=== PATIENT | female | born 1990 | race Caucasian/White ===

== ENCOUNTER 2019-09-19 22:09 | Emergency (ER) | payer MEDICAID ==
[2019-09-19] MEDS ORDERED: ONDANSETRON 4 MG TAB.RAPDIS PO ONE (22:34)
[2019-09-19] MEDS ORDERED: LORAZEPAM 0.5 MG TABLET PO ONE (23:51)
--- NOTE | 2019-09-19 23:51 | ER Document Report ---
ED General - General Chief Complaint: Anxiety Stated Complaint: CHEST PAIN/ANXIETY Time Seen by Provider: 09/19/19 23:42 Mode of Arrival: Ambulatory Information source: Patient TRAVEL OUTSIDE OF THE [place] IN LAST 30 DAYS: No - HPI Onset: Other - over the last 3 days Onset/Duration: Gradual Quality of pain: Pressure Severity: Moderate Pain Level: 3 Associated symptoms: Nausea, Vomiting Exacerbated by: Other - Anxiety Relieved by: Denies Similar symptoms previously: Yes - with Anxiety and Panic Attacks Recently seen / treated by doctor: No Notes: 29 year old female with a history of Anxiety, Depression, PTSD, Bipolar here in the ER for chest pain and anxiety for the last several days. The patient says she recently moved to the area from [place] and she does not have a primary care doctor or a mental health provider. The patient says she has been off all of her medications for several months now. The patient says she had been on Gabapentin, Seroquel, Klonopin, and Remeron. The patient says the chest pains she is having are common for her when she is anxious. The patient says she also gets nausea and vomiting with her anxiety and she states she has been unable to keep anything down for 3 days. The patient is also concerned she may be having seizures. The patient tells me she takes Gabapentin for her seizures and that she has never been prescribed a true anti-epileptic medication. - Related Data Allergies/Adverse Reactions: cefaclor [From Ceclor] Allergy (Verified 09/19/19 22:11) Penicillins Allergy (Verified 09/19/19 22:11) Past Medical History - General Information source: Patient - Social History Smoking Status: Current Every Day Smoker Frequency of alcohol use: None Drug Abuse: None Family History: Reviewed & Not Pertinent Patient has suicidal ideation: No Patient has homicidal ideation: No Psychiatric Medical History: Reports: Hx Anxiety, Hx Bipolar Disorder, Hx Depression, Hx Post Traumatic Stress Disorder Review of Systems - Review of Systems Constitutional: No symptoms reported EENT: No symptoms reported Cardiovascular: Chest pain Respiratory: No symptoms reported Gastrointestinal: Nausea, Vomiting Genitourinary: No symptoms reported Female Genitourinary: No symptoms reported Musculoskeletal: No symptoms reported Skin: No symptoms reported Hematologic/Lymphatic: No symptoms reported Neurological/Psychological: Anxiety -: Yes All other systems reviewed and negative Physical Exam - Vital signs Vitals: Temp Pulse BP Pulse Ox 98.0 F 99 154/104 H 100 09/19/19 22:13 09/19/19 22:13 09/19/19 22:13 09/19/19 22:13 - Notes Notes: GENERAL: Well-appearing, well-nourished and in no acute distress. HEAD: Atraumatic, normocephalic. EYES: Pupils equal round and reactive to light, extraocular movements intact, sclera anicteric, conjunctiva are normal. ENT: External ears normal, nares patent, oropharynx clear without exudates. Moist mucous membranes. NECK: Normal range of motion, supple without lymphadenopathy or JVD. LUNGS: Breath sounds clear to auscultation bilaterally and equal. No wheezes rales or rhonchi. HEART: Regular rate and rhythm without murmurs, rubs or gallops. ABDOMEN: Soft, nontender, normoactive bowel sounds. No guarding, no rebound. No masses appreciated. EXTREMITIES: Normal range of motion, no pitting or edema. No clubbing or cyanosis. NEUROLOGICAL: Cranial nerves II through XII grossly intact. Normal speech, normal gait. PSYCH: Anxious, Normal mood, normal affect. SKIN: Warm, Dry, normal turgor, no rashes or lesions noted. Course - Re-evaluation Re-evalutation: 09/20/19 00:12 The patient is here - Vital Signs Vital signs: Temp Pulse Resp BP Pulse Ox 98.2 F 95 22 H 134/86 H 99 09/19/19 23:09 09/19/19 23:09 09/19/19 23:09 09/19/19 23:09 09/19/19 23:09 - EKG Interpretation by Pa EKG shows normal: Sinus rhythm, [place], Intervals, QRS Complexes, ST-T Waves Rate: Normal Rhythm: NSR Discharge - Discharge Clinical Impression: Anxiety Nausea & vomiting Qualifiers: Vomiting type: unspecified Vomiting Intractability: non-intractable Qualified Code(s): R11.2 - Nausea with vomiting, unspecified Chest pain Qualifiers: Chest pain type: other chest pain Qualified Code(s): R07.89 - Other chest pain; R07.8 - Other chest pain Condition: Stable Disposition: HOME, SELF-CARE Instructions: Anxiety ([facility]), Nausea or Vomiting, Nonspecific ([facility]), Chest Pain of Unclear Cause ([facility]) Additional Instructions: Take Zofran as needed for nausea. Eat a bland diet until your nausea and vomiting improves. Follow up with outpatient Mental Health and with a local primary care doctor. Prescriptions: Ondansetron [Zofran Odt 4 mg Tablet] 4 mg PO Q8HP PRN #15 tab.rapdis PRN Reason: Referrals: LUIS KIRBY MD [COMMUNITY BASED STAFF] - Follow up as needed LARISSA MCKEON MD [ACTIVE STAFF] - Follow up as needed
[2019-09-20] MEDS ORDERED: ACETAMINOPHEN 325 MG TABLET PO ONE (00:57)
[2019-09-20 01:29] VITALS: BP 130/79
[2019-09-20] MEDS ORDERED: ONDANSETRON 4 MG TAB.RAPDIS PO ONE (01:33)
--- NOTE | 2019-09-20 15:28 | EKG REPORT ---
SEVERITY:- ABNORMAL ECG - SINUS RHYTHM RIGHT ATRIAL ABNORMALITY BORDERLINE PROLONGED QT INTERVAL : Confirmed by: Carole Anna MD 20-Sep-2019 15:26:59
== END 2019-09-20 01:58 | disposition home or self-care (01) ==
LOC: ER 22:09
DX: F41.9 Anxiety disorder, unspecified (principal); R11.2 Nausea with vomiting, unspecified; R07.89 Other chest pain; R56.9 Unspecified convulsions; F17.200 Nicotine dependence, unspecified, uncomplicated; Z79.899 Other long term (current) drug therapy; Z88.1 Allergy status to other antibiotic agents; Z88.0 Allergy status to penicillin
CPT/HCPCS: 93005; 99283; 93010; J3490; S0119 ×2

== ENCOUNTER 2019-09-20 02:49 | Emergency (ER) | payer MEDICAID ==
[2019-09-20 02:56] VITALS: BP 164/106
[2019-09-20] MEDS ORDERED: PROMETHAZINE HCL INJ 25 MG/1 ML VIAL IM ONE (02:59)
--- NOTE | 2019-09-20 03:01 | ER Document Report ---
ED General - General Chief Complaint: Abdominal Pain Stated Complaint: ABDOMINAL PAIN AND NAUSEA Time Seen by Provider: 09/20/19 02:54 Mode of Arrival: Ambulatory Information source: Patient TRAVEL OUTSIDE OF THE [place]. IN LAST 30 DAYS: No - HPI Onset: Other - over the last several days Onset/Duration: Gradual Quality of pain: Achy Severity: Moderate Pain Level: 3 Associated symptoms: Nausea, Vomiting Exacerbated by: Food Relieved by: Denies Similar symptoms previously: Yes - many times before Recently seen / treated by doctor: Yes - patient was seen in the ER on 09/18/18 by me for similar issues Notes: 29 year old female with a history of Anxiety, Depression, PTSD, Bipolar who was just seen in the ER earlier for chest pain, nausea, vomiting, anxiety checking back into the ER for continued nausea and vomiting. As it turns out the patient was discharged and was in the waiting room when nursing staff noticed the patient making herself vomit. The patient had been given Zofran on her previous ER visit. - Related Data Allergies/Adverse Reactions: [facility] [[facility] Allergy (Verified 09/19/19 22:11) Penicillins Allergy (Verified 09/19/19 22:11) Past Medical History - General Information source: Patient - Social History Smoking Status: Current Every Day Smoker Frequency of alcohol use: None Drug Abuse: None Lives with: Friend Family History: Reviewed & Not Pertinent Patient has suicidal ideation: No Patient has homicidal ideation: No Psychiatric Medical History: Reports: Hx Anxiety, Hx Bipolar Disorder, Hx Depression, Hx Post Traumatic Stress Disorder Review of Systems - Review of Systems Constitutional: No symptoms reported EENT: No symptoms reported Cardiovascular: No symptoms reported Respiratory: No symptoms reported Gastrointestinal: Nausea, Vomiting Genitourinary: No symptoms reported Female Genitourinary: No symptoms reported Musculoskeletal: No symptoms reported Skin: No symptoms reported Hematologic/Lymphatic: No symptoms reported Neurological/Psychological: Anxiety -: Yes All other systems reviewed and negative Physical Exam - Vital signs Vitals: Temp 98.7 F 09/20/19 02:50 - Notes Notes: GENERAL: Poorly groomed, well-nourished and in no acute distress. HEAD: Atraumatic, normocephalic. EYES: Pupils equal round and reactive to light, extraocular movements intact, sclera anicteric, conjunctiva are normal. ENT: Normal external ears, nares patent, oropharynx clear without exudates. Moist mucous membranes. NECK: Normal range of motion, supple without lymphadenopathy or JVD. LUNGS: Breath sounds clear to auscultation bilaterally and equal. No wheezes rales or rhonchi. HEART: Regular rate and rhythm without murmurs, rubs or gallops. ABDOMEN: Soft, nontender, normoactive bowel sounds. No guarding, no rebound. No masses appreciated. EXTREMITIES: Normal range of motion, no pitting or edema. No clubbing or cyanosis. NEUROLOGICAL: No focal deficits. Normal speech, normal gait. PSYCH: Normal mood, normal affect. SKIN: Warm, Dry, normal turgor, no rashes or lesions noted. Course - Re-evaluation Re-evalutation: 09/20/19 03:11 The patient checked back into the ER for continued nausea/vomiting and abdominal pains. Nursing staff witnessed the patient making herself vomit in the waiting room. The patient apparently also was shaking on her own and telling staff she was having a seizure while completely conscious. The patient was in the same state of health she was in when I saw her earlier in the shift but this time she was very impolite and rude, swearing and yelling at staff. The patient was told she could have an IM shot of Phenergan and then she could leave the hospital on her own or be escorted off the hospital grounds by police. No lab work or imaging needed since patient has chronic anxiety and she often has nausea and vomiting with her anxiety. Patient told she needs to follow up with a primary care doctor and outpatient mental health. - Vital Signs Vital signs: Temp Pulse Resp BP Pulse Ox 98.7 F 96 20 164/106 H 09/20/19 02:55 09/20/19 02:55 09/20/19 02:55 09/20/19 02:55 Discharge - Discharge Clinical Impression: Anxiety Nausea & vomiting Qualifiers: Vomiting type: unspecified Vomiting Intractability: non-intractable Qualified Code(s): R11.2 - Nausea with vomiting, unspecified Condition: Stable Disposition: HOME, SELF-CARE Instructions: Nausea or Vomiting, Nonspecific ([facility]) Additional Instructions: Use your previously prescribed Zofran as needed for nausea/vomiting. Eat a bland diet. Follow up with a local primary care doctor and local mental health provider.
[2019-09-20] MEDS ORDERED: MAG HYDROX/AL HYDROX/SIMETH SUSP 30 ML UDCUP PO ONE (03:11)
[2019-09-20] MEDS ORDERED: ONDANSETRON ODT 4 MG TAB (6 TAB/ER DISP) PO PRN (05:07)
== END 2019-09-20 05:00 | disposition home or self-care (01) ==
LOC: ER 02:49
DX: F41.9 Anxiety disorder, unspecified (principal); R11.2 Nausea with vomiting, unspecified; R10.9 Unspecified abdominal pain; R07.9 Chest pain, unspecified; F32.9 Major depressive disorder, single episode, unspecified; Z88.0 Allergy status to penicillin; Z88.1 Allergy status to other antibiotic agents; F17.200 Nicotine dependence, unspecified, uncomplicated
CPT/HCPCS: 99283; J3490; J2550

== ENCOUNTER 2019-09-24 21:33 | Emergency (ER) | payer OTHER ==
--- NOTE | 2019-09-24 23:26 | ER Document Report ---
ED Psych Disorder / Suicide - General Chief Complaint: Psych Problem Stated Complaint: PSYCH/DETOX Time Seen by Provider: 09/24/19 23:00 Notes: Patient is a 29-year-old female that comes to the emergency department for chief complaint of vomiting 6 times today. She denies chest pain, abdominal pain, fever, . She states that she was "on a crack cocaine binge" because she has been depressed because she ran out of her regular medications. She states she has been out of her medications including klonopin, seroquel, gabapentin, suboxone, remeron. She states she has a history of bipolar disorder, anxiety/depression, PTSD, and cyclic vomiting syndrome. She denies recreational drugs other than crack cocaine, denies recent marijuana, denies ever injecting IV drugs. She states she was given a one-month supply on her last visit with her psychiatrist and now ran out, she states she is living with a friend, she denies being homeless. She denies SI or HI, she states that she thought she was hearing voices earlier this morning, but when asked what they were saying she states "they just occasionally say my name and nothing else". She states she is not concerned for her safety, she states she is just hoping to get back on her medications. She states she was seen here recently and prescribed Zofran but it was not helping this morning. TRAVEL OUTSIDE OF THE [place] IN LAST 30 DAYS: No - Related Data Allergies/Adverse Reactions: cefaclor [From [facility]] Allergy (Verified 09/19/19 22:11) Penicillins Allergy (Verified 09/19/19 22:11) Home Medications: NO MEDS FOR 2 WEEKS Past Medical History - General Information source: Patient - Social History Smoking Status: Current Every Day Smoker Drug Abuse: Cocaine, Marijuana Lives with: Friend Family History: Reviewed & Not Pertinent Patient has homicidal ideation: No Psychiatric Medical History: Reports: Hx Anxiety, Hx Bipolar Disorder, Hx Depression, Hx Post Traumatic Stress Disorder - Immunizations Hx Diphtheria, Pertussis, Tetanus Vaccination: Yes Review of Systems - Review of Systems Constitutional: No symptoms reported EENT: No symptoms reported Cardiovascular: No symptoms reported Respiratory: No symptoms reported Gastrointestinal: See HPI Genitourinary: No symptoms reported Female Genitourinary: No symptoms reported Musculoskeletal: No symptoms reported Skin: No symptoms reported Hematologic/Lymphatic: No symptoms reported Neurological/Psychological: See HPI Physical Exam - Vital signs Vitals: Temp Pulse Resp BP Pulse Ox 98.7 F 115 H 13 137/84 H 97 09/24/19 21:43 09/24/19 21:43 09/24/19 21:43 09/24/19 21:43 09/24/19 21:43 - Notes Notes: GENERAL: Alert, interacts well. No acute distress. HEAD: Normocephalic, atraumatic. EYES: Pupils equal, round, and reactive to light. Extraocular movements intact. ENT: Oral mucosa dry, tongue midline. Oropharynx unremarkable. Airway patent. NECK: Full range of motion. Supple. Trachea midline. No lymphadenopathy. LUNGS: Clear to auscultation bilaterally, no wheezes, rales, or rhonchi. No respiratory distress. Non-tender chest wall. HEART: Regular rate and rhythm. No murmur ABDOMEN: Soft, non-tender. Non-distended. Bowel sounds present in all 4 quadrants. EXTREMITIES: Moves all 4 extremities spontaneously. No edema, normal radial and dorsalis pedis pulses bilaterally. No cyanosis. BACK: no cervical, thoracic, lumbar midline tenderness. No saddle anesthesia, normal distal neurovascular exam. Moves all extremities in full range of motion. NEUROLOGICAL: Alert and oriented x3. Normal speech. Cranial nerves II through XII grossly intact. Strength 5/5 in all extremities. PSYCH: Speaks in even tones, makes good eye contact, does not appear to be responding to internal stimuli, appears calm, congruent mood and affect SKIN: Warm, dry, normal turgor. No rashes or lesions noted. Course - Re-evaluation Re-evalutation: Patient sleeping and easily aroused, well-appearing on my initial evaluation. She is not tachycardic. She does have dry mucous membranes, she does report that she had vomiting today. She was given IV fluids, nausea medication, work- up pending. CBC unremarkable, chemistry does show hypokalemia at 2.8, otherwise unremarkable. Urinalysis does have a few squamous epithelials, large amount of leukocyte esterase and some white blood cells. Patient was started on Macrobid, she does not have CVA tenderness, leukocytosis, fever. Urine drug screen does show cocaine and marijuana. Alcohol negative. EKG with borderline QTC but otherwise unremarkable. Patient states that she is not suicidal, not homicidal, and she is denying any current hallucinations. Patient is well-appearing, has not taken benzodiazepines for over 2 weeks, has recently taken Suboxone but does not appear to have any severe symptoms here, she has not had any vomiting here, she is not tachycardic after IV fluids (she was borderline later after I discussed her situation and she became somewhat upset), she is not tremulous or diaphoretic. Patient is stating that she wants inpatient detox and rehab. I discussed patient with our mental health team. Unfortunately we do not have any available beds at [facility] at this time, he does not meet IVC criteria, patient can be given resources for homelessness, however patient denies being homeless. Discussed Dr. Medrano. Patient can be treated for nausea, UTI, and discharged. Patient was being given potassium supplementation, however in the middle of this patient states she was to take by mouth and is ready to leave. She can orally supplement at home as well. Discussed return precautions and provided follow-up referral. Stable and well-appearing at time of discharge. - Vital Signs Vital signs: Temp Pulse Resp BP Pulse Ox 98.2 F 98 15 146/99 H 97 09/24/19 23:35 09/24/19 23:35 09/25/19 04:01 09/25/19 04:01 09/25/19 04:01 - Laboratory Result Diagrams: 09/25/19 01:50 09/25/19 01:50 Laboratory results interpreted by me: 09/24/19 09/25/19 09/25/19 23:40 01:50 01:50 RDW 14.5 H Sodium 135.4 L Potassium 2.8 L* Chloride 92 L Carbon Dioxide 33 H Creatine Kinase 29 L Urine Blood LARGE H Urine Urobilinogen 2.0 H Ur Leukocyte Esterase LARGE H Salicylates < 1.0 L Acetaminophen < 10 L Discharge - Discharge Clinical Impression: Has run out of medications, Anxiety Vomiting Qualifiers: Vomiting type: unspecified Vomiting Intractability: non-intractable Nausea presence: unspecified Qualified Code(s): R11.10 - Vomiting, unspecified Opiate dependence Qualifiers: Substance use status: with unspecified opioid-induced disorder Qualified Code(s): F11.29 - Opioid dependence with unspecified opioid-induced disorder Condition: Stable Disposition: HOME, SELF-CARE Additional Instructions: You have been treated for dehydration, low potassium, and have been started on medications for a urinary tract infection. Take Phenergan if needed, start with bland diet. Follow-up with the rehab center listed below. Return for any concerning symptoms including developing fever, uncontrolled vomiting, or any other concerning or worsening symptoms. [facility] [address] [place] [id number] Hours: Open 24 hours Prescriptions: Nitrofurantoin Macrocrystal [Macrodantin] 50 mg PO QID 5 Days #20 capsule Promethazine HCl [Phenergan 25 mg Tablet] 25 mg PO Q6H PRN #20 tablet PRN Reason:
[2019-09-24] MEDS ORDERED: PROMETHAZINE HCL 25 MG TABLET PO ONE (23:48)
[2019-09-24] MEDS ORDERED: FAMOTIDINE 20 MG TABLET PO ONE (23:48)
[2019-09-24] MEDS ORDERED: NORMAL SALINE 1000 ML 1,000 ML IV ONE (23:50)
[2019-09-25 00:08] LABS: APPEARANCE,URINE CLOUDY; BILIRUBIN,URINE NEGATIVE (NEGATIVE); COLOR,URINE YELLOW; GLUCOSE, URINE NEGATIVE (NEGATIVE); KETONES,URINE NEGATIVE (NEGATIVE); LEUKOCYTE ESTERASE,URINE LARGE (NEGATIVE); NITRITE,URINE NEGATIVE (NEGATIVE); PROTEIN,URINE NEGATIVE (NEGATIVE); URINE SPECIFIC GRAVITY 1.009
[2019-09-25 00:23] LABS: URINE AMPHETAMINES SCREEN NEGATIVE; URINE BARBITURATES SCREEN NEGATIVE; URINE BENZODIAZEPINES SCREEN NEGATIVE; URINE METHADONE SCREEN NEGATIVE; URINE PHENCYCLIDINE SCREEN NEGATIVE
[2019-09-25 00:25] LABS: URINE COCAINE SCREEN UNCONFIRMED POSITIVE; URINE MARIJUANA (THC) SCREEN UNCONFIRMED POSITIVE
[2019-09-25] MEDS ORDERED: DIPHENHYDRAMINE HCL 50 MG/ML VIAL IV ONE (01:24)
[2019-09-25 02:11] LABS: ABSOLUTE BASOPHILS # (AUTO) 0.1 10^3/uL (0.0-0.2); ABSOLUTE EOSINOPHILS # (AUTO) 0.1 10^3/uL (0.0-0.6); ABSOLUTE LYMPHOCYTES (AUTO) 3.5 10^3/uL (0.5-4.7); ABSOLUTE MONOCYTES (AUTO) 0.7 10^3/uL (0.1-1.4); ABSOLUTE NEUT (AUTO) 5.7 10^3/uL (1.7-8.2); BASOPHILS % (AUTO) 0.6 % (0-2); EOSINOPHILS % (AUTO) 0.9 % (0-6); HEMATOCRIT 40.7 % (36.0-47.0); HEMOGLOBIN 13.9 g/dL (12.0-15.5); MEAN CORPUSCULAR HEMOGLOBIN 29.5 pg (27.0-33.4); MEAN CORPUSCULAR HGB CONC 34.3 g/dL (32.0-36.0); MEAN CORPUSCULAR VOLUME 86 fl (80-97); MONOCYTES % (AUTO) 6.5 % (3-13); PLATELET COUNT 304 10^3/uL (150-450); RED BLOOD COUNT 4.73 10^6/uL (3.72-5.28); RED CELL DISTRIBUTION WIDTH 14.5 % (11.5-14.0); TOTAL CELLS COUNTED % (AUTO) 100 %
[2019-09-25 02:53] LABS: ACETAMINOPHEN < 10 ug/mL (10-30); ALBUMIN 4.4 g/dL (3.5-5.0); ALCOHOL < 10 mg/dL (NONE DETECTED); ALKALINE PHOSPHATASE 60 U/L (38-126); ANION GAP 10 (5-19); ASPARTATE AMINO TRANSFERASE 16 U/L (14-36); BILIRUBIN,TOTAL 0.2 mg/dL (0.2-1.3); BLOOD UREA NITROGEN 9 mg/dL (7-20); CALCIUM 8.8 mg/dL (8.4-10.2); CARBON DIOXIDE 33 mmol/L (22-30); CHLORIDE 92 mmol/L (98-107); CREATINE KINASE 29 U/L (30-135); GLUCOSE 94 mg/dL (75-110); SALICYLATE < 1.0 mg/dL (2.0-20.0); TOTAL PROTEIN 7.2 g/dL (6.3-8.2)
[2019-09-25 02:56] LABS: POTASSIUM 2.8 mmol/L (3.6-5.0)
[2019-09-25] MEDS ORDERED: PROMETHAZINE HCL INJ 25 MG/1 ML VIAL IM ONE (03:07)
[2019-09-25] MEDS ORDERED: NITROFURANTOIN MONOHYD/M-CRYST 100 MG CAPSULE PO ONE (03:13)
[2019-09-25] MEDS: POTASSI CL 20 MEQ/50 ML RIDER 20 MEQ/50 ML RTUPB IV SCH ×2 (03:21→04:30)
[2019-09-25] MEDS ORDERED: POTASSIUM CHLORIDE 10 MEQ TABLET.ER PO ONE (04:16)
[2019-09-25 04:26] VITALS: BP 146/99
--- NOTE | 2019-09-25 10:18 | EKG REPORT ---
SEVERITY:- ABNORMAL ECG - SINUS RHYTHM NONSPECIFIC T ABNORMALITIES, INFERIOR LEADS PROLONGED QT INTERVAL : Confirmed by: Carole Anna MD 25-Sep-2019 10:16:48
== END 2019-09-25 04:46 | disposition home or self-care (01) ==
LOC: ER 21:33
DX: F11.29 Opioid dependence with unspecified opioid-induced disorder (principal); R11.10 Vomiting, unspecified; F41.9 Anxiety disorder, unspecified; F17.200 Nicotine dependence, unspecified, uncomplicated; Z88.0 Allergy status to penicillin
CPT/HCPCS: 93005; 99284; 96372; 96361; 96375; 96365; 36415; 80307 ×4; 82550; 84703; 87070; 81001; 93010; J3490 ×3; J1200; J2550; J3480; J7030; J8499

== ENCOUNTER 2019-10-04 10:51 | Emergency (ER) | payer MEDICAID, OTHER ==
[2019-10-04] MEDS ORDERED: NORMAL SALINE 1000 ML 1,000 ML IV ONE (11:17)
[2019-10-04] MEDS ORDERED: LORAZEPAM INJ 2 MG/1 ML VIAL IV ONE (11:18)
[2019-10-04] MEDS ORDERED: ONDANSETRON HCL INJ/PF 4 MG/2 ML SDV IV ONE (11:18)
--- NOTE | 2019-10-04 11:18 | ER Document Report ---
ED General - General Chief Complaint: Drug Abuse Stated Complaint: DETOXING Time Seen by Provider: 10/04/19 11:04 Notes: 29-year-old woman presents to the emergency department with a 2-day history of nausea vomiting and inability to keep down fluids. She denies diarrhea or fever. She complains of generalized body aches and pains. States she has had something similar approximately a year ago. She has a history of anxiety takes Klonopin 1 mg 3 times a day. Has not been able to keep her medications down she says since Thursday. She is requesting medication for anxiety as well as fluids. Patient states that she is hoping to detox from crack cocaine. She last used crack cocaine on Thursday. She does not want inpatient treatment but is asking for outpatient resources. TRAVEL OUTSIDE OF THE [place] IN LAST 30 DAYS: No - Related Data Allergies/Adverse Reactions: [facility] [[facility] Allergy (Verified 09/19/19 22:11) Penicillins Allergy (Verified 09/19/19 22:11) Past Medical History - Social History Smoking Status: Unknown if Ever Smoked Family History: Reviewed & Not Pertinent Patient has homicidal ideation: No Psychiatric Medical History: Reports: Hx Anxiety, Hx Bipolar Disorder, Hx Depression, Hx Post Traumatic Stress Disorder - Immunizations Hx Diphtheria, Pertussis, Tetanus Vaccination: Yes Review of Systems - Review of Systems Notes: Constitutional: Negative for fever. HENT: Negative for sore throat. Eyes: Negative for visual changes. Cardiovascular: Negative for chest pain. Respiratory: Negative for shortness of breath. Gastrointestinal: +vomiting, no diarrhea. Genitourinary: Negative for dysuria. Musculoskeletal: + Myalgia Skin: Negative for rash. Neurological: Negative for headaches, weakness or numbness. 10 point ROS negative except as marked above and in HPI. Physical Exam - Vital signs Vitals: Temp 97.9 F 10/04/19 10:58 - Notes Notes: PHYSICAL EXAMINATION: Physical Exam: General: Well-nourished well-developed in a 9-year-old female in no acute distress HEENT: NC/AT, pupils equal round and reactive to light, MM moist,nares clear, oropharynx clear, airway patent Neck: supple, no adenopathy, no masses. Good range of motion Lungs: clear, no wheezing, no rales no rhonchi CVS: Regular rate and rhythm no murmur gallop or rub Abdomen: Soft, active, nontender, no masses, no hepatosplenomegaly Ext: No edema, clubbing or cyanosis. Neuro: Alert and responsive, moving all 4 extremities on command, cranial nerves intact, no focal findings Skin: Intact no open lesions, no rash PSYCH: Normal mood, normal affect. Course - Re-evaluation Re-evalutation: 10/04/19 14:44 Patient is given normal saline, Zofran, Compazine with control of the nausea and vomiting. She is being discharged home, resources have been given from to behavioral health services regarding outpatient detox. - Vital Signs Vital signs: Temp Pulse Resp BP Pulse Ox 97.9 F 16 142/104 H 98 10/04/19 14:00 10/04/19 14:00 10/04/19 14:00 10/04/19 14:00 - Laboratory Result Diagrams: 10/04/19 11:05 10/04/19 11:05 Laboratory results interpreted by me: 10/04/19 10/04/19 10/04/19 11:05 11:05 13:13 RDW 14.8 H [place] % (Auto) 2.3 L Seg Neutrophils % 82.5 H Sodium 132.7 L Chloride 93 L Carbon Dioxide 32 H Glucose 134 H Urine Ascorbic Acid 20 H Discharge - Discharge Clinical Impression: Cocaine abuse Nausea and vomiting Qualifiers: Vomiting type: unspecified Vomiting Intractability: non-intractable Qualified Code(s): R11.2 - Nausea with vomiting, unspecified Condition: Good Disposition: HOME, SELF-CARE Instructions: Vomiting ([facility]) Additional Instructions: You are seen in the emergency department today with vomiting episodes and nausea. You were given a prescription for Phenergan to use as an outpatient for nausea and vomiting control. Please use the outpatient resources regarding your attempts to detox. Follow-up with your primary care doctor as needed If your symptoms are worsening or have other concerns please return to the emergency department. HOME CARE INSTRUCTIONS & INFORMATION: Thank you for choosing us for your medical needs. We hope you're satisfied with the care you received. After you leave, you must properly care for your problem and, at the same time, observe its progress. Any condition can change. Some illnesses can change rapidly over hours or days. If your condition worsens, return to the Emergency Department or see your physician promptly. ABOUT YOUR X-RAYS AND EKG'S: If you had an EKG or X-rays taken, they have been read by the Emergency Physician. The X-rays and EKG's will also be read by a Radiologist or Dump Truck Driver within 24 hours. If discrepancies are noted, you will be notified by telephone. Please be certain the ED has a correct telephone number & address where you can be reached. Also, realize that some fractures or abnormalities do not show up on initial X-rays. If your symptoms continue, see your physician. ABOUT YOUR LABORATORY TEST: If you had laboratory tests, the results have been reviewed by the Emergency Physician. Some test results (for example cultures) may not be available for several days. You will be contacted if any test result shows you need additional treatment. Please be certain the ED has a correct telephone number and address where you can be reached. ABOUT YOUR MEDICATIONS: You will receive instructions on how to take your medicine on the prescription label you receive. Additional information may be provided by the Pharmacy. If you have questions afterwards, call the ED for clarification or further instructions. Some prescribed medications may cause drowsiness. Do not perform tasks such as driving a car or operating machinery without consulting your Pharmacist. If you feel you need a refill of pain medication, your condition will need re-evaluation. Please do not call for a refill of any medication. ABOUT YOUR SIGNATURE: Signature of this document acknowledges to followin. Understanding that you received emergency treatment and that you may be released before al medical problems are known or treated. Please be certain the ED has a correct phone number & address where you can be reached. 2. Acknowledgement that you will arrange for follow-up care as recommended. 3. Authorization for the Emergency Physician to provide information to your follow-up Physician in order to maximize your care. AT ANY TIME, IF YOUR SYMPTOMS CHANGE SIGNIFICANTLY OR WORSEN OR YOU DEVELOP NEW SYMPTOMS, RETURN TO THE EMERGENCY DEPARTMENT IMMEDIATELY FOR RE-EVALUATION. OUR GOAL IS TO PROVIDE EXCELLENT MEDICAL CARE! WE HOPE THAT WE HAVE MET YOUR EXPECTATIONS DURING YOUR EMERGENCY DEPARTMENT VISIT AND THAT YOU FEEL YOU HAVE RECEIVED EXCELLENT CARE! Prescriptions: Promethazine HCl [Phenergan 25 mg Tablet] 25 - 50 mg PO ASDIR PRN #12 tablet PRN Reason:
[2019-10-04 12:21] LABS: ABSOLUTE BASOPHILS # (AUTO) 0.1 10^3/uL (0.0-0.2); ABSOLUTE LYMPHOCYTES (AUTO) 1.4 10^3/uL (0.5-4.7); ABSOLUTE MONOCYTES (AUTO) 0.2 10^3/uL (0.1-1.4); ABSOLUTE NEUT (AUTO) 7.7 10^3/uL (1.7-8.2); BASOPHILS % (AUTO) 0.6 % (0-2); EOSINOPHILS % (AUTO) 0.2 % (0-6); HEMOGLOBIN 14.2 g/dL (12.0-15.5); LYMPHOCYTES % (AUTO) 14.4 % (13-45); MEAN CORPUSCULAR HEMOGLOBIN 29.2 pg (27.0-33.4); MEAN CORPUSCULAR HGB CONC 34.6 g/dL (32.0-36.0); MEAN CORPUSCULAR VOLUME 85 fl (80-97); MONOCYTES % (AUTO) 2.3 % (3-13); PLATELET COUNT 290 10^3/uL (150-450); RED BLOOD COUNT 4.85 10^6/uL (3.72-5.28); RED CELL DISTRIBUTION WIDTH 14.8 % (11.5-14.0); SEGMENTED NEUTROPHILS % (AUTO) 82.5 % (42-78); TOTAL CELLS COUNTED % (AUTO) 100 %; WHITE BLOOD COUNT 9.4 10^3/uL (4.0-10.5)
[2019-10-04 12:41] LABS: ALBUMIN 4.5 g/dL (3.5-5.0); ALKALINE PHOSPHATASE 57 U/L (38-126); ANION GAP 8 (5-19); ASPARTATE AMINO TRANSFERASE 20 U/L (14-36); BILIRUBIN,DIRECT 0.1 mg/dL (0.0-0.4); BILIRUBIN,TOTAL 0.4 mg/dL (0.2-1.3); BLOOD UREA NITROGEN 10 mg/dL (7-20); CALCIUM 9.5 mg/dL (8.4-10.2); CARBON DIOXIDE 32 mmol/L (22-30); CHLORIDE 93 mmol/L (98-107); GLUCOSE 134 mg/dL (75-110); POTASSIUM 4.1 mmol/L (3.6-5.0); TOTAL PROTEIN 7.5 g/dL (6.3-8.2)
[2019-10-04] MEDS ORDERED: PROCHLORPERAZINE EDISYLATE INJ 10 MG/2 ML VIAL IV ONE (13:01)
[2019-10-04 13:41] LABS: APPEARANCE,URINE CLEAR; BILIRUBIN,URINE NEGATIVE (NEGATIVE); COLOR,URINE STRAW; GLUCOSE, URINE NEGATIVE (NEGATIVE); KETONES,URINE NEGATIVE (NEGATIVE); PROTEIN,URINE NEGATIVE (NEGATIVE); UROBILINOGEN,URINE NEGATIVE mg/dL (<2.0)
[2019-10-04 13:42] LABS: RBC,URINE NONE SEEN /HPF
[2019-10-04 13:50] LABS: URINE AMPHETAMINES SCREEN NEGATIVE; URINE BARBITURATES SCREEN NEGATIVE; URINE MARIJUANA (THC) SCREEN NEGATIVE; URINE METHADONE SCREEN NEGATIVE; URINE PHENCYCLIDINE SCREEN NEGATIVE
[2019-10-04 13:54] LABS: URINE BENZODIAZEPINES SCREEN UNCONFIRMED POSITIVE; URINE COCAINE SCREEN UNCONFIRMED POSITIVE
[2019-10-04 15:09] VITALS: BP 124/104
== END 2019-10-04 15:08 | disposition home or self-care (01) ==
LOC: ER 10:51
DX: F14.10 Cocaine abuse, uncomplicated (principal); R11.2 Nausea with vomiting, unspecified; M79.10 Myalgia, unspecified site; F41.9 Anxiety disorder, unspecified; Z88.0 Allergy status to penicillin; Z88.1 Allergy status to other antibiotic agents; Z79.899 Other long term (current) drug therapy
CPT/HCPCS: 99284; 96361; 96374; 96375; 36415; 83690; 85025; 80053; 81001; 80307; J0780; J2405; J7030

== ENCOUNTER 2019-10-08 13:24 | Emergency (ER) | payer MEDICAID ==
[2019-10-08] MEDS ORDERED: LORAZEPAM INJ 2 MG/1 ML VIAL IV ONE ×2 (13:25→13:37)
--- NOTE | 2019-10-08 13:45 | ER Document Report ---
ED General - General Chief Complaint: Seizure Stated Complaint: WITHDRAWAL/SEIZURES Time Seen by Provider: 10/08/19 13:34 TRAVEL OUTSIDE OF THE [place] IN LAST 30 DAYS: No - HPI Notes: Chief complaint: Withdrawal seizure History of present illness: 29-year-old female with longstanding history of abuse of cocaine and benzodiazepines seen here approximately 6 days ago by another provider and discharged at that time. Apparently has had no access to benzodiazepines and was brought back by companions by automobile for "severe withdrawal" and was seizing at the time they arrived at front door. Further hi story not obtainable from patient or companions at this time. Previous records here reviewed. - Related Data Allergies/Adverse Reactions: cefaclor [From [facility]] Allergy (Verified 09/19/19 22:11) Penicillins Allergy (Verified 09/19/19 22:11) Past Medical History - General Information source: Friend, [facility] Records Cannot obtain history due to: Other - Actively seizing - Social History Smoking Status: Current Every Day Smoker Drug Abuse: Cocaine, Prescription drugs Family History: Reviewed & Not Pertinent Psychiatric Medical History: Reports: Hx Anxiety, Hx Bipolar Disorder, Hx Depression, Hx Post Traumatic Stress Disorder - Immunizations Hx Diphtheria, Pertussis, Tetanus Vaccination: Yes Review of Systems - Review of Systems -: Yes ROS unobtainable due to patient's medical condition Physical Exam - Vital signs Vitals: Resp Pulse Ox 46 H 100 10/08/19 13:25 10/08/19 13:25 - Notes Notes: GENERAL: Female patient approximately stated age who is actively seizing with generalized tonic-clonic movements. SKIN: Cool and pale. Appears to have needle tracks of all extremities. HEAD: Normocephalic atraumatic. EYES: Pupils dilated and equal with eyes strongly deviated to the left. EARS: CANALS AND TMS CLEAR. NOSE: CLEAR. MOUTH: Tongue abraded. NECK: No masses or thyromegaly. No adenopathy. CHEST: Clear with symmetrical breath sounds. HEART: Tachycardic regular rhythm. No murmur gallop or rub. ABDOMEN: No masses, organomegaly. GENITALIA: Normal female. EXTREMITIES: No edema. No calf tenderness. Cap refill less than 1.5 seconds. Dorsalis pedis and posterior tibial pulses 3+ and symmetrical. NEUROLOGICAL: Actively seizing with tonic-clonic movements symmetrical. Course - Re-evaluation Re-evalutation: 10/08/19 19:02 Patient was having a grand mal seizure apparently related to benzodiazepine withdrawal when she arrived. This was terminated with 2 mg of Ativan promptly. She was thereafter postictal for some time. She remains sleepy at this point but is easily arousable and will answer simple questions. She wants to go back to [facility] if possible. Her alcohol here was less than 10. Her salicylate and acetaminophen levels were not elevated. Her urine tox screen was positive for cocaine cannabis and benzodiazepines. Consultation with the behavioral medicine service has been requested to assist with return to [facility]. - Vital Signs Vital signs: Temp Pulse Resp BP Pulse Ox 99.8 F 19 154/110 H 98 10/08/19 14:03 10/08/19 17:00 10/08/19 17:00 10/08/19 17:00 - Laboratory Result Diagrams: 10/08/19 13:32 10/08/19 13:32 Laboratory results interpreted by me: 10/08/19 10/08/19 10/08/19 13:32 13:32 13:45 WBC 14.1 H RDW 14.6 H Plt Count 469 H Absolute Neuts (auto) 10.9 H Chloride 96 L Carbon Dioxide 16 L Anion Gap 25 H Glucose 131 H Total Protein 8.5 H Albumin 5.3 H Urine Protein 100 H Urine Ketones TRACE H Urine Ascorbic Acid 40 H Acetaminophen < 10 L - Diagnostic Test Radiology reviewed: Reports reviewed Radiology results interpreted by me: 10/08/19 19:00 Portable chest x-ray per radiologist: No active disease. - EKG Interpretation by Me Additional EKG results interpreted by me: 10/08/19 18:59 Twelve-lead EKG from 1411 hrs. reviewed contemporaneously by me demonstrating sinus tachycardia with a rate of 110, left atrial abnormality and QRS axis of +[address]/T wave changes appreciated. Intervals normal. Critical Care Note - Critical Care Note Total time excluding time spent on procedures (mins): 35 - Actively seizing. IV Ativan. Discharge - Discharge Clinical Impression: Seizure secondary to benzodiazepine with, Polysubstance abuse Nausea and vomiting Qualifiers: Vomiting Intractability: non-intractable Disposition: PSYCH HOSP/UNIT
[2019-10-08] MEDS ORDERED: NORMAL SALINE 1000 ML 1,000 ML IV ONE (13:55)
[2019-10-08] MEDS ORDERED: KETOROLAC TROMETHAMINE INJ/PF 30 MG/1 ML SDV IV ONE (13:56)
--- NOTE | 2019-10-08 14:02 | RADIOLOGY REPORT (SQ) ---
EXAM DESCRIPTION: CHEST SINGLE VIEW IMAGES COMPLETED DATE/TIME: 10/08/2019 1:52 pm REASON FOR STUDY: seizure COMPARISON: None. EXAM PARAMETERS: NUMBER OF VIEWS: One view. TECHNIQUE: Single frontal radiographic view of the chest acquired. RADIATION DOSE: NA LIMITATIONS: None. FINDINGS: LUNGS AND PLEURA: No opacities, masses or pneumothorax. No pleural effusion. MEDIASTINUM AND HILAR STRUCTURES: No masses. Contour normal. HEART AND VASCULAR STRUCTURES: Heart normal in size. Normal vasculature. BONES: No acute findings. HARDWARE: None in the chest. OTHER: No other significant finding. IMPRESSION: NO ACUTE RADIOGRAPHIC FINDING IN THE CHEST. TECHNICAL DOCUMENTATION: JOB ID: [id number] 2010 [employer]- All Rights Reserved Reading location - IP/workstation name: [id number]
[2019-10-08 14:07] LABS: ABSOLUTE BASOPHILS # (AUTO) 0.1 10^3/uL (0.0-0.2); ABSOLUTE LYMPHOCYTES (AUTO) 2.6 10^3/uL (0.5-4.7); ABSOLUTE MONOCYTES (AUTO) 0.5 10^3/uL (0.1-1.4); ABSOLUTE NEUT (AUTO) 10.9 10^3/uL (1.7-8.2); BASOPHILS % (AUTO) 1.1 % (0-2); EOSINOPHILS % (AUTO) 0.3 % (0-6); HEMATOCRIT 43.3 % (36.0-47.0); HEMOGLOBIN 14.3 g/dL (12.0-15.5); LYMPHOCYTES % (AUTO) 18.4 % (13-45); MEAN CORPUSCULAR HEMOGLOBIN 28.6 pg (27.0-33.4); MEAN CORPUSCULAR HGB CONC 32.9 g/dL (32.0-36.0); MEAN CORPUSCULAR VOLUME 87 fl (80-97); MONOCYTES % (AUTO) 3.3 % (3-13); PLATELET COUNT 469 10^3/uL (150-450); RED BLOOD COUNT 4.99 10^6/uL (3.72-5.28); RED CELL DISTRIBUTION WIDTH 14.6 % (11.5-14.0); SEGMENTED NEUTROPHILS % (AUTO) 76.9 % (42-78); TOTAL CELLS COUNTED % (AUTO) 100 %; WHITE BLOOD COUNT 14.1 10^3/uL (4.0-10.5)
[2019-10-08] MEDS ORDERED: ONDANSETRON HCL INJ/PF 4 MG/2 ML SDV IV ONE ×2 (14:15→19:37)
[2019-10-08 14:17] LABS: ALBUMIN 5.3 g/dL (3.5-5.0); ALKALINE PHOSPHATASE 53 U/L (38-126); BILIRUBIN,TOTAL 0.4 mg/dL (0.2-1.3); BLOOD UREA NITROGEN 12 mg/dL (7-20); CALCIUM 9.8 mg/dL (8.4-10.2); GLUCOSE 131 mg/dL (75-110); POTASSIUM 4.4 mmol/L (3.6-5.0); TOTAL PROTEIN 8.5 g/dL (6.3-8.2)
[2019-10-08 14:21] LABS: CARBON DIOXIDE 16 mmol/L (22-30); CHLORIDE 96 mmol/L (98-107)
[2019-10-08 14:22] LABS: ASPARTATE AMINO TRANSFERASE 30 U/L (14-36)
[2019-10-08 14:25] LABS: ACETAMINOPHEN < 10 ug/mL (10-30); ALCOHOL < 10 mg/dL (NONE DETECTED); ANION GAP 25 (5-19)
[2019-10-08] MEDS ORDERED: HALOPERIDOL LACTATE INJ 5 MG/1 ML VIAL IV ONE (14:44)
[2019-10-08 15:10] LABS: AMORPHOUS SEDIMENT,URINE TRACE /HPF; APPEARANCE,URINE CLOUDY; BILIRUBIN,URINE NEGATIVE (NEGATIVE); COLOR,URINE YELLOW; GLUCOSE, URINE NEGATIVE (NEGATIVE); KETONES,URINE TRACE mg/dL (NEGATIVE); PROTEIN,URINE 100 mg/dL (NEGATIVE); URINE SPECIFIC GRAVITY 1.026; UROBILINOGEN,URINE NEGATIVE mg/dL (<2.0)
[2019-10-08] MEDS ORDERED: METOCLOPRAMIDE HCL INJ/PF 10 MG/2 ML SDV IV ONE (15:21)
[2019-10-08 15:22] LABS: URINE AMPHETAMINES SCREEN NEGATIVE; URINE BARBITURATES SCREEN NEGATIVE; URINE BENZODIAZEPINES SCREEN UNCONFIRMED POSITIVE; URINE COCAINE SCREEN UNCONFIRMED POSITIVE; URINE MARIJUANA (THC) SCREEN UNCONFIRMED POSITIVE; URINE METHADONE SCREEN NEGATIVE; URINE PHENCYCLIDINE SCREEN NEGATIVE
[2019-10-08] MEDS ORDERED: PROMETHAZINE HCL INJ 25 MG/1 ML VIAL IM ONE (16:19)
--- NOTE | 2019-10-08 19:06 | PSYCHOLOGICAL NOTE ---
Psych Note - Psych Note Date seen by psych provider: 10/08/19 Time seen by psych provider: 18:16 Psych Note: Reason For Consult: temporary office assistant and attending physician spoke with patient together Patient arrived to [facility] from [facility] with concerns of withdrawal seizures. Patient reports she wants to go back to the [facility] for continued treatment. She confirms she is working with the community paramedics for the Suboxone program and states she is supposed to meet them on Thursday. She denies any thoughts of wanting to harm herself or others and has no further concerns at this time. Patient requested ice chips. After returning with ice chips, the patient stated that she needs her medications. She reports that she needs her gabapentin, Seroquel, Klonopin, and Remeron. She states that she takes these at 7:00 PM. Patient is alert and orientated to person, place, time and circumstance. Patient had to be awoken to engage with both clinician and attending physician. Patient's grooming is disheveled. Mood is irritable with congruent affect. Patient denies suicidal and homicidal ideation. Delusions are absent and behaviors congruent with an intact reality based presentation ie organized and linear thought process. Eye contact is poor. Conversational speech is short and communicates her irritability.. Intellectual abilities appear to be within the average range. Attention and concentration are fair to poor. Insight, judgment, impulse control are historically poor due to polysubstance abuse [facility]: Clinician spoke with [facility], they confirm they are still holding a bed for the patient. They disclosed the patient arrived for a bed reservation and was doing her intake, but was vomiting so much they had to bring her to [facility]. The patient must wait 24 hours post seizure before re turning to [facility]. [facility] Paramedics: Zelalem Mack reports he has been having difficulties enrolling the patient into their program since the patient has not finished the paperwork to start. He confirms he will be following up with her; they have a scheduled meeting time with her on Thursday. Diagnosis: Polysubstance abuse Impression\plan:Patient is cleared from acute psychiatric services. Patient arrived from [facility] after excessive vomiting and seizure. Patient reports she would like to return to [place] to continue treatment; she must wait 24 hours post seizure before she can return. [facility] confirms they are holding her bed. Patient is also engage with the community paramedics for their Suboxone program. The patient is to meet with them on Thursday. At this time, the patient is recommended to continue with her substance abuse treatment. Dr. Rodriges was consulted to care management of this patient; attending physicians in agreement with recommendations and disposition.
[2019-10-08] MEDS ORDERED: LORAZEPAM 1 MG TABLET PO PRN (19:37)
[2019-10-09] MEDS ORDERED: ONDANSETRON 4 MG TAB.RAPDIS PO ONE (05:10)
[2019-10-09] MEDS ORDERED: PROMETHAZINE HCL 25 MG TABLET PO PRN (05:16)
[2019-10-09] MEDS ORDERED: DOXAZOSIN MESYLATE 2 MG TABLET PO SCH (06:00)
[2019-10-09] MEDS: MIRTAZAPINE 15 MG TABLET PO SCH ×2 (06:09→06:17)
[2019-10-09] MEDS: GABAPENTIN 300 MG CAPSULE PO SCH ×2 (06:09→06:17)
[2019-10-09 10:26] VITALS: BP 112/86
--- NOTE | 2019-10-09 10:42 | EKG REPORT ---
SEVERITY:- BORDERLINE ECG - SINUS TACHYCARDIA PROBABLE LEFT ATRIAL ABNORMALITY : Confirmed by: Gloria Ortega 09-Oct-2019 10:41:17
== END 2019-10-09 10:26 | disposition home or self-care (01) ==
LOC: ER 13:24
DX: R56.9 Unspecified convulsions (principal); F19.939 Other psychoactive substance use, unspecified with withdrawal, unspecified; R11.2 Nausea with vomiting, unspecified; F12.10 Cannabis abuse, uncomplicated; F14.10 Cocaine abuse, uncomplicated; Z88.0 Allergy status to penicillin; Z88.1 Allergy status to other antibiotic agents; F17.200 Nicotine dependence, unspecified, uncomplicated
CPT/HCPCS: 93005; 96376; 99291; 96372; 96361; 96374; 96375; 36415; 80307 ×3; 83735; 84703; 85025; 80053; 81001; 71045; 93010; S0119; J1630; J3490 ×2; J1885; J2765; J2060; J2550; J2405; J7030; 82962

== ENCOUNTER 2019-11-30 10:01 | Emergency (ER) | payer MEDICAID ==
[2019-11-30] MEDS ORDERED: MIDAZOLAM 2 MG/2 ML INJ IM ONE (10:07)
--- NOTE | 2019-11-30 10:08 | ER Document Report ---
ED General - General Stated Complaint: POSSIBLE SEIZURE Time Seen by Provider: 11/30/19 10:05 Notes: 29-year-old female with a history of pseudoseizures and anxiety presents with chest pain and anxiety. Think of having a panic attack. Ran out of Klonopin 5 days ago did go to the doctor. No seizure activity today. Nauseous and having shortness of breath. No witnessed seizure activity. TRAVEL OUTSIDE OF THE [place] IN LAST 30 DAYS: No - Related Data Allergies/Adverse Reactions: cefaclor [From Ceclor] Allergy (Verified 09/19/19 22:11) Penicillins Allergy (Verified 09/19/19 22:11) Past Medical History - Social History Smoking Status: Current Every Day Smoker Smoking Education Provided: Yes - The patient ED visit today was directly related to their abuse of tobacco. Family History: Reviewed & Not Pertinent Psychiatric Medical History: Reports: Hx Anxiety, Hx Bipolar Disorder, Hx Depression, Hx Post Traumatic Stress Disorder - Immunizations Hx Diphtheria, Pertussis, Tetanus Vaccination: Yes Course - Re-evaluation Re-evalutation: 11/30/19 10:34 Eun nausea secondary to benzo withdrawal Given Versed Improved Heart rate came down EKG normal Requesting Phenergan and AtivanI denied this request given her history. She will need to follow-up with primary to get re-prescribe her medications No evidence of seizure or even nonepileptic seizure in the ED I have discussed with the patient there likely diagnosis, aftercare plan, follow-up plans and my usual and customary return precautions. They verbalized understanding of this. - EKG Interpretation by Me EKG shows normal: Sinus rhythm Rate: Normal Rhythm: NSR When compared to previous EKG there are: Previous EKG unavailable - No ST or T wave changes concerning for ischemia or right ventricular strain Discharge - Discharge Clinical Impression: Benzodiazepine withdrawal Qualifiers: Complication of substance-induced condition: uncomplicated Qualified Code(s): F13.230 - Sedative, hypnotic or anxiolytic dependence with withdrawal, uncomplicated Condition: Good Disposition: HOME, SELF-CARE Instructions: Anxiety ([facility]) Additional Instructions: We are unable to prescribe a refill your controlled substance prescription, however your failure to do so has resulted in mild withdrawal. Please call your doctor today to arrange a refill
--- NOTE | 2019-11-30 16:23 | EKG REPORT ---
SEVERITY:- BORDERLINE ECG - SINUS RHYTHM BORDERLINE PROLONGED QT INTERVAL : Confirmed by: Yousuf Dodd MD 30-Nov-2019 16:23:26
== END 2019-11-30 10:41 | disposition home or self-care (01) ==
LOC: ER 10:01
DX: F13.230 Sedative, hypnotic or anxiolytic dependence with withdrawal, uncomplicated (principal); F41.9 Anxiety disorder, unspecified; R11.0 Nausea; R06.02 Shortness of breath; R07.9 Chest pain, unspecified; F17.200 Nicotine dependence, unspecified, uncomplicated; Z88.1 Allergy status to other antibiotic agents; Z88.0 Allergy status to penicillin
CPT/HCPCS: 93005; 99284; 96372; 93010; J2250

== ENCOUNTER 2019-11-30 13:03 | Emergency (ER) | payer MEDICAID ==
--- NOTE | 2019-11-30 13:11 | ER Document Report ---
ED General - General Chief Complaint: Anxiety Stated Complaint: BENZODIAZEPINE WITHDRAWL Time Seen by Provider: 11/30/19 13:10 Notes: presents with repeat visit the same day for questionable pseudoseizure. She was seen by me earlier mirella, and was given benzodiazepines for likely withdrawal. She exhibited no seizure activity whatsoever. She was tachycardic which resolved had normal EKG and was no longer nauseous. Apparently she went to the crisis center had a reasonably positive urine drug screen and for some reason they called to have her brought back to the ER. TRAVEL OUTSIDE OF THE [place] IN LAST 30 DAYS: No - Related Data Allergies/Adverse Reactions: cefaclor [From [facility]] Allergy (Verified 09/19/19 22:11) Penicillins Allergy (Verified 09/19/19 22:11) Past Medical History - Social History Smoking Status: Unknown if Ever Smoked Family History: Reviewed & Not Pertinent Psychiatric Medical History: Reports: Hx Anxiety, Hx Bipolar Disorder, Hx Depression, Hx Post Traumatic Stress Disorder, Hx Schizophrenia - Immunizations Hx Diphtheria, Pertussis, Tetanus Vaccination: Yes Review of Systems - Review of Systems Notes: REVIEW OF SYSTEMS GEN: Denies fever, chills, weight loss ENT: Denies sore throat, nasal discharge, ear pain EYES: Denies blurry vision, eye pain, discharge CV: Denies chest pain, palpitations, edema RESP: Denies cough, shortness of breath, wheezing GI: Denies abdominal pain, nausea, vomiting, diarrhea MSK: Denies joint pain/swelling, edema, SKIN: Denies rash, skin lesions LYMPH: Denies swollen glands/lymph nodes NEURO: Denies headache, focal weakness or numbness, dizziness PSYCH: Eun benzodiazepine use PHYSICAL EXAMINATION General: No acute distress, well-nourished Head: Atraumatic, normocephalic ENT: Mouth normal, oropharynx moist, lips normal Eyes: Conjunctiva normal, pupils equal, lids normal Neck: No JVD, supple, no guarding Resp: No resp distress, equal chest rise GI: Nondistended, no guarding Back: No midline or CVA tenderness Ext: No deformities, no edema Skin: Well-perfused, no rash Neuro: Awake, alert. Face symmetric. Physical Exam - Vital signs Vitals: Temp 99.9 F 11/30/19 13:21 Course - Re-evaluation Re-evalutation: 11/30/19 13:55 Patient presents again with nausea vomiting. She had apparently a pseudoseizure there. Here she is actually retching. I gave her Phenergan. She still begging for Ativan. Was called to bedside as she was "having a seizure" the patient willfully threw her self on the floor was flopping around. I was able to actually snap her out of it with some forcible pain stimulus and she took a swing to try to hit me. She will be discharged. - Vital Signs Vital signs: Temp Pulse Resp BP Pulse Ox 99.9 F 81 22 H 123/76 98 11/30/19 13:25 11/30/19 13:25 11/30/19 13:25 11/30/19 13:25 11/30/19 13:25 Discharge - Discharge Clinical Impression: Anxiety Condition: Good Disposition: HOME, SELF-CARE Instructions: Anxiety ([facility])
[2019-11-30] MEDS ORDERED: PROMETHAZINE HCL INJ 50 MG/1 ML VIAL IM PRN (13:13)
[2019-11-30 13:26] VITALS: BP 123/76
== END 2019-11-30 14:06 | disposition home or self-care (01) ==
LOC: ER 13:03
DX: F41.9 Anxiety disorder, unspecified (principal); R11.2 Nausea with vomiting, unspecified; Z88.1 Allergy status to other antibiotic agents; Z88.0 Allergy status to penicillin
CPT/HCPCS: 99283; 96372; J2550

== ENCOUNTER 2019-12-01 11:59 | Emergency (ER) | payer MEDICAID ==
[2019-12-01] MEDS ORDERED: PHENOBARBITAL INJ 65 MG/ML VIAL IV ONE (12:02)
[2019-12-01] MEDS ORDERED: ONDANSETRON HCL INJ/PF 4 MG/2 ML SDV IV ONE (12:04)
--- NOTE | 2019-12-01 12:14 | ER Document Report ---
ED General - General Chief Complaint: Withdrawal Stated Complaint: NAUSEA,VOMITING Time Seen by Provider: 12/01/19 12:02 Notes: 29-year-old female with 2 ED visits yesterday for benzo withdrawal presents with the same. She is nauseous has left flank pain has not urinated much and is not on any medication despite having been benzodependent and been off of them for over a week. She was at a treatment center. She may have had a pseudoseizure there but is unclear. About having pneumonia or UTI. She also is asking for "Haldol for my cyclic vomiting syndrome" of note her urine was positive for multiple intoxicants yesterday. TRAVEL OUTSIDE OF THE [place] IN LAST 30 DAYS: No - Related Data Allergies/Adverse Reactions: cefaclor [From [facility]] Allergy (Verified 12/01/19 13:55) Penicillins Allergy (Verified 12/01/19 13:55) Past Medical History - General Information source: Patient - Social History Smoking Status: Unknown if Ever Smoked Family History: Reviewed & Not Pertinent Patient has homicidal ideation: No Psychiatric Medical History: Reports: Hx Anxiety, Hx Bipolar Disorder, Hx Depression, Hx Post Traumatic Stress Disorder, Hx Schizophrenia - Immunizations Hx Diphtheria, Pertussis, Tetanus Vaccination: Yes Review of Systems - Review of Systems Notes: REVIEW OF SYSTEMS GEN: Denies fever, chills, weight loss ENT: Denies sore throat, nasal discharge, ear pain EYES: Denies blurry vision, eye pain, discharge CV: Denies chest pain, palpitations, edema RESP: Denies cough, shortness of breath, wheezing GI: Nausea and vomiting flank pain MSK: Denies joint pain/swelling, edema, SKIN: Denies rash, skin lesions LYMPH: Denies swollen glands/lymph nodes NEURO: Denies headache, focal weakness or numbness, dizziness PSYCH: Lady no suicidality PHYSICAL EXAMINATION General: No acute distress, well-nourished Head: Atraumatic, normocephalic ENT: Mouth normal, oropharynx moist, no exudates or tonsillar enlargement Eyes: Conjunctiva normal, pupils equal, lids normal Neck: No JVD, supple, no guarding CVS: Normal rate, regular rhythm, no murmurs Resp: No resp distress, equal and normal breath sounds bilaterally GI: Nondistended, soft, no tenderness to palpation, no rebound or guarding Ext: No deformities, no edema, normal range of motion in upper and lower ext Back: No CVA or midline TTP Skin: No rash, warm Lymphatic: No lymphadeopathy noted Neuro: Awake, alert. Face symmetric. GCS 15. Physical Exam - Vital signs Vitals: Temp Pulse Resp BP Pulse Ox 98.7 F 75 20 132/78 H 100 12/01/19 12:05 12/01/19 12:05 12/01/19 12:05 12/01/19 12:05 12/01/19 12:05 Course - Re-evaluation Re-evalutation: 12/01/19 15:58 Presents with recurrent visit for benzodiazepine withdrawal and nausea. She is noncompliant with testing, will not let us draw blood or get an x-ray. She was given Haldol Benadryl and Ativan and various dosing for her nausea and vomiting and felt much better. On reassessment she is asking to leave and wants Phenergan. Prescribe suppositories. Does have a white count but could be stress test related and given she is refusing further work-up I cannot force it on her. She does not meet criteria for IVC and will be discharged. I have discussed with the patient there likely diagnosis, aftercare plan, follow-up plans and my usual and customary return precautions. They verbalized unde rstanding of this. - Vital Signs Vital signs: Temp Pulse Resp BP Pulse Ox 98.1 F 96 18 127/68 H 98 12/01/19 15:45 12/01/19 15:45 12/01/19 15:45 12/01/19 15:45 12/01/19 15:45 - Laboratory Result Diagrams: 12/01/19 13:11 12/01/19 13:11 Laboratory results interpreted by me: 12/01/19 13:11 WBC 13.9 H RDW 17.5 H Abs Neuts (Manual) 10.0 H Discharge - Discharge Clinical Impression: Benzodiazepine withdrawal Qualifiers: Complication of substance-induced condition: uncomplicated Qualified Code(s): F13.230 - Sedative, hypnotic or anxiolytic dependence with withdrawal, uncomplicated Condition: Good Disposition: HOME, SELF-CARE Instructions: Vomiting ([facility]) Prescriptions: Promethazine HCl [Phenergan 25 mg Supp.rect] 1 supp UT Q6H #12 supp.rect
[2019-12-01] MEDS: RINGERS SOLUTION,LACTATED 1,000 ML IV PRN ×2 (12:26→13:14)
--- NOTE | 2019-12-01 12:30 | RADIOLOGY REPORT (SQ) ---
EXAM DESCRIPTION: CHEST SINGLE VIEW IMAGES COMPLETED DATE/TIME: 12/01/2019 12:21 pm REASON FOR STUDY: COUGH COMPARISON: AP chest 10/08/2019 EXAM PARAMETERS: NUMBER OF VIEWS: One view. TECHNIQUE: Single frontal radiographic view of the chest acquired. Abdomen pelvis shielded during ex posure RADIATION DOSE: NA LIMITATIONS: Lordotic portable film FINDINGS: LUNGS AND PLEURA: No opacities, masses or pneumothorax. No pleural effusion. MEDIASTINUM AND HILAR STRUCTURES: No masses. Contour normal. HEART AND VASCULAR STRUCTURES: Heart normal in size. Normal vasculature. BONES: No acute findings. HARDWARE: None in the chest. OTHER: No other significant finding. IMPRESSION: NO ACUTE RADIOGRAPHIC FINDING IN THE CHEST. TECHNICAL DOCUMENTATION: JOB ID: [id number] 2010 [employer]- All Rights Reserved Reading location - IP/workstation name: [id number]
[2019-12-01 13:27] LABS: HEMATOCRIT 41.3 % (36.0-47.0); HEMOGLOBIN 14.2 g/dL (12.0-15.5); MEAN CORPUSCULAR HEMOGLOBIN 29.3 pg (27.0-33.4); MEAN CORPUSCULAR HGB CONC 34.2 g/dL (32.0-36.0); MEAN CORPUSCULAR VOLUME 86 fl (80-97); PLATELET COUNT 280 10^3/uL (150-450); RED BLOOD COUNT 4.83 10^6/uL (3.72-5.28); RED CELL DISTRIBUTION WIDTH 17.5 % (11.5-14.0); WHITE BLOOD COUNT 13.9 10^3/uL (4.0-10.5)
[2019-12-01] MEDS ORDERED: HALOPERIDOL LACTATE INJ 5 MG/1 ML VIAL IV ONE (13:37)
[2019-12-01] MEDS ORDERED: DIPHENHYDRAMINE HCL 50 MG/ML VIAL IV ONE (13:37)
[2019-12-01 13:57] LABS: ABSOLUTE LYMPHOCYTES# (MANUAL) 3.2 10^3/uL (0.5-4.7); ABSOLUTE MONOCYTES # (MANUAL) 0.6 10^3/uL (0.1-1.4); BASOPHILS % (MANUAL) 1 % (0-2); EOSINOPHILS % (MANUAL) 0 % (0-6); LYMPHOCYTES % (MANUAL) 23 % (13-45); MONOCYTES % (MANUAL) 4 % (3-13); SEGMENTED NEUTROPHILS % (MAN) 72 % (42-78); TOTAL CELLS COUNTED 100
[2019-12-01 13:58] LABS: ANISOCYTOSIS 1+; OVALOCYTES SLIGHT
[2019-12-01 13:59] LABS: PLATELET CLUMPS PRESENT; PLATELET COMMENT ADEQUATE; PLATELET LARGE PRESENT
[2019-12-01 15:48] VITALS: BP 127/68
== END 2019-12-01 15:45 | disposition home or self-care (01) ==
LOC: ER 11:59
DX: F13.230 Sedative, hypnotic or anxiolytic dependence with withdrawal, uncomplicated (principal); R11.15 Cyclical vomiting syndrome unrelated to migraine; R10.9 Unspecified abdominal pain; Z91.19 Patient's noncompliance with other medical treatment and regimen; Z88.1 Allergy status to other antibiotic agents; Z88.0 Allergy status to penicillin
CPT/HCPCS: 99283; 96361; 96374; 96375; 36415; 85025; 71045; J1200; J1630; J2560; J2405; J7120

== ENCOUNTER 2020-01-06 14:26 | Emergency (ER) | payer MEDICAID, OTHER ==
[2020-01-06] MEDS ORDERED: ONDANSETRON HCL INJ/PF 4 MG/2 ML SDV IV ONE (16:18)
[2020-01-06] MEDS ORDERED: NORMAL SALINE 1000 ML 1,000 ML IV ONE (16:18)
[2020-01-06] MEDS ORDERED: KETOROLAC TROMETHAMINE INJ/PF 30 MG/1 ML SDV IV ONE (16:23)
--- NOTE | 2020-01-06 16:23 | ER Document Report ---
ED Medical Screen (RME) - General Stated Complaint: VOMITING Time Seen by Provider: 01/06/20 16:10 TRAVEL OUTSIDE OF THE [place] IN LAST 30 DAYS: No - HPI Notes: 01/06/20 16:18 29-year-old female with a history of polysubstance abuse presents emergency room today for complaints of left upper quadrant left lower quadrant abdominal pain that started 2 days ago along with fevers. Patient reports she is having cyclical vomiting. Patient states she had a cholecystectomy in 2006. Last bowel movement was 2 days ago. States her last menstrual cycle ended at the end of November, could not give me an exact date. reports pain is sharp, shooting pain in waves with a dull constant ache. She reports pain is 5 out of 5. Denies any vaginal bleeding, vaginal discharge. Patient states she has not been drinking or eating in the last 2 days. I have greeted and performed a rapid initial assessment of this patient. A comprehensive ED assessment and evaluation of the patient, analysis of test results and completion of the medical decision making process will be conducted by additional ED providers. PHYSICAL EXAMINATION: GENERAL: Well-appearing, well-nourished and in mild distress CV: s1, s2 regular LUNGS: No respiratory distress abd: Upper quadrant left lower quadrant abdominal pain on palpation, no rebound tenderness noted - Related Data Allergies/Adverse Reactions: cefaclor [From Ceclor] Allergy (Verified 12/01/19 13:55) Penicillins Allergy (Verified 12/01/19 13:55) Past Medical History Psychiatric Medical History: Reports: Hx Anxiety, Hx Bipolar Disorder, Hx Depression, Hx Post Traumatic Stress Disorder, Hx Schizophrenia - Immunizations Hx Diphtheria, Pertussis, Tetanus Vaccination: Yes
[2020-01-06 17:13] LABS: ABSOLUTE LYMPHOCYTES (AUTO) 1.1 10^3/uL (0.5-4.7); ABSOLUTE MONOCYTES (AUTO) 0.4 10^3/uL (0.1-1.4); ABSOLUTE NEUT (AUTO) 17.6 10^3/uL (1.7-8.2); BASOPHILS % (AUTO) 0.2 % (0-2); HEMATOCRIT 45.6 % (36.0-47.0); HEMOGLOBIN 15.2 g/dL (12.0-15.5); LYMPHOCYTES % (AUTO) 5.9 % (13-45); MEAN CORPUSCULAR HGB CONC 33.4 g/dL (32.0-36.0); MEAN CORPUSCULAR VOLUME 90 fl (80-97); MONOCYTES % (AUTO) 1.9 % (3-13); PLATELET COUNT 436 10^3/uL (150-450); RED BLOOD COUNT 5.07 10^6/uL (3.72-5.28); RED CELL DISTRIBUTION WIDTH 15.3 % (11.5-14.0); TOTAL CELLS COUNTED % (AUTO) 100 %; WHITE BLOOD COUNT 19.1 10^3/uL (4.0-10.5)
[2020-01-06] MEDS ORDERED: DIPHENHYDRAMINE HCL 50 MG/ML VIAL IV ONE ×2 (18:40→18:43)
[2020-01-06] MEDS ORDERED: HALOPERIDOL LACTATE INJ 5 MG/1 ML VIAL IV ONE (18:43)
--- NOTE | 2020-01-06 18:45 | ER Document Report ---
Doctor's Note Notes: 01/06/20 18:44 1840RODNEY Malone advised me that the patient needed something for CT because she keeps vomiting. When reviewing her labs her white count is 19 with a left shift. Because I only triaged the patient I would not be keeping her, I would like another provider to come evaluate her before she is sedated so they could see what her presentation is. Spoke with Dr. noland, ER supervising physician, who stated that he would come evaluate patient and then give her medications if she can obtain her CT scan of her abdomen and pelvis.
--- NOTE | 2020-01-06 19:09 | ER Document Report ---
ED GI/ - General Mode of Arrival: Ambulatory Information source: Patient TRAVEL OUTSIDE OF THE [place] IN LAST 30 DAYS: No - HPI Patient complains to provider of: Abdominal pain, Vomiting Onset: Other - "x few days" Severity at maximum: Moderate Severity in ED: Moderate Pain Level: 2 Location: LUQ - Related Data Home Medications: Seroquel. Gabapentin. Klonidine. Halddol daily <KERI RICHMOND JR - Last Filed: 01/06/20 19:12> <DALLIN BROWNE - Last Filed: 01/07/20 12:50> <JAC MEJIA - Last Filed: 01/07/20 13:29> - General Chief Complaint: Nausea/Vomiting/Diarrhea Stated Complaint: VOMITING Time Seen by Provider: 01/06/20 16:10 Primary Care Provider: [facility] [Outside] - Follow up as needed Notes: ED Medical Screen (MALA CHAPA) - General Stated Complaint: VOMITING Time Seen by Provider: 01/06/20 16:10 TRAVEL OUTSIDE OF THE [place] IN LAST 30 DAYS: No - HPI Notes: 01/06/20 16:18 29-year-old female with a history of polysubstance abuse presents emergency room today for complaints of left upper quadrant left lower quadrant abdominal pain that started 2 days ago along with fevers. Patient reports she is having cyc lical vomiting. Patient states she had a cholecystectomy in 2006. Last bowel movement was 2 days ago. States her last menstrual cycle ended at the end of November, could not give me an exact date. reports pain is sharp, shooting pain in waves with a dull constant ache. She reports pain is 5 out of 5. Denies any vaginal bleeding, vaginal discharge. Patient states she has not been drinking or eating in the last 2 days. I have greeted and performed a rapid initial assessment of this patient. A comprehensive ED assessment and evaluation of the patient, analysis of test results and completion of the medical decision making process will be conducted by additional ED providers. PHYSICAL EXAMINATION: GENERAL: Well-appearing, well-nourished and in mild distress CV: s1, s2 regular LUNGS: No respiratory distress abd: Upper quadrant left lower quadrant abdominal pain on palpation, no rebound tenderness noted Had traumatic injury my notes 29-year-old female arrives with chief complaint of withdrawing from use of fentanyl heroin cocaine methamphetamine marijuana. Patient currently is vomiting multiple times in the room as IVs are attempted on her feet and forearms and wrist without success. A EJ was placed in her left neck successfully Radha STEVENS/myself @1904.. Patient also complains of abdominal pain with fever with cyclic nausea and vomiting. (KERI RICHMOND JR) - Related Data Allergies/Adverse Reactions: cefaclor [From [facility]] Allergy (Verified 01/06/20 17:15) Penicillins Allergy (Verified 01/06/20 17:15) Past Medical History - Social History Smoking Status: Never Smoker Chew tobacco use (# tins/day): No Frequency of alcohol use: None Drug Abuse: None Family History: Reviewed & Not Pertinent Patient has homicidal ideation: No Psychiatric Medical History: Reports: Hx Anxiety, Hx Bipolar Disorder, Hx Depression, Hx Post Traumatic Stress Disorder, Hx Schizophrenia - Immunizations Hx Diphtheria, Pertussis, Tetanus Vaccination: Yes <KERI RICHMOND JR - Last Filed: 01/06/20 19:12> Physical Exam - Vital signs Vitals: Pulse Resp BP Pulse Ox 74 18 147/90 H 100 01/06/20 20:11 01/06/20 20:11 01/06/20 20:11 01/06/20 20:11 Course - Laboratory Result Diagrams: 01/06/20 14:10 01/06/20 14:10 <KERI RICHMOND JR - Last Filed: 01/06/20 19:12> - Laboratory Result Diagrams: 01/07/20 10:30 01/07/20 10:30 <DALLIN BROWNE - Last Filed: 01/07/20 12:50> - Laboratory Result Diagrams: 01/07/20 10:30 01/07/20 10:30 <JCA MEJIA - Last Filed: 01/07/20 13:29> - Vital Signs Vital signs: Temp Pulse Resp BP Pulse Ox 98.7 F 75 20 139/76 H 99 01/07/20 05:04 01/07/20 05:04 01/07/20 05:04 01/07/20 05:04 01/07/20 05:04 - Laboratory Laboratory results interpreted by me: 01/06/20 01/06/20 01/06/20 14:10 19:20 19:20 WBC 19.1 H RDW 15.3 H Lymph % (Auto) 5.9 L Aiken % (Auto) 1.9 L Absolute Neuts (auto) 17.6 H Seg Neutrophils % 92.0 H Sodium 136.1 L Carbon Dioxide 19 L Glucose 121 H Total Protein 8.8 H Albumin 5.2 H Urine Protein Urine Ketones Urine Blood Salicylates < 1.0 L Acetaminophen < 10 L 01/06/20 01/07/20 01/07/20 19:55 10:30 10:30 WBC 15.6 H RDW 15.6 H Lymph % (Auto) Aiken % (Auto) Absolute Neuts (auto) 11.8 H Seg Neutrophils % Sodium 136.7 L Carbon Dioxide Glucose 121 H Total Protein Albumin Urine Protein 100 H Urine Ketones 80 H Urine Blood SMALL H Salicylates Acetaminophen Discharge <KERI RICHMOND JR - Last Filed: 01/06/20 19:12> <DALLIN BROWNE - Last Filed: 01/07/20 12:50> <JAC MEJIA - Last Filed: 01/07/20 13:29> - Discharge Clinical Impression: Withdrawal from opioids, Polysubstance abuse, Opiate use, Benzodiazepine abuse, Cocaine abuse, Cannabis abuse, Suicidal ideation Condition: Stable Disposition: HOME, SELF-CARE Additional Instructions: You have been evaluated by both medical and behavioral health teams for polysubstance use, opioid withdrawal, and suicidal ideation. You have been deemed appropriate for discharge. While in the emergency department you received the following services: Medical screening and assessment, nursing services, dietary services, pharmacological services, one-on-one counseling and/or psychotherapy, environmental services, and continuous observation by a patient environmental health and safety manager. Use of multiple substances is dangerous, especially when using uppers and downers. It can cause serious medical and/or mental health issues. You are recommended to continue utilizing [facility] for voluntary detoxification placement. COCAINE ABUSE: Cocaine causes many dangerous medical problems. Problems can occur even with "usual" amounts. Cocaine affects judgement, creating a sense of invulnerability. Cocaine users often make bad decisions that seem "great" at the time. Most cocaine users eventually will be hurt by bad job performance, damaged personal relations, crime, and unsafe sexual practices. Toxic effects of cocaine can include seizures, hallucinations, delusions, high blood pressure, heart damage, or sudden . There's always the risk of a "bad batch." But heart attacks, brain hemorrhages, or cardiac arrest can occu r unpredictably even with "normal" use. Injection of cocaine is risky for abscesses, endocarditis (heart infection), pneumonia, and AIDS. Withdrawal from cocaine often causes anxiety and drug cravings. Some users become paranoid and psychotic. Many treatment programs are available, but you must make the decision to quit. Medication can be prescribed to control the symptoms of cocaine toxicity (beta blockers or benzodiazepines). Withdrawal symptoms may require tranquilizers. NARCOTIC / OPIOD ABUSE: Narcotics and opiods are pain-relieving drugs that are often abused. They are addicting. Narcotics cause euphoria, but it often takes increasing amounts to "feel good" and avoid withdrawal symptoms. Overdose of narcotics causes small pupils, coma, and decreased breathing. It's a common cause of . Purity of street narcotics is unpredictable. Injection of narcotics is risky for abscesses, endocarditis (heart infection), pneumonia, and AIDS. Withdrawal from narcotics causes goose bumps, watery mouth, sweating, nasal congestion, muscle aches, abdominal cramps, vomiting, and diarrhea. There's often restlessness and confusion. Treatment programs are available, but you must make the decision to quit. Medication (such as clonidine) can be prescribed to control the symptoms of withdrawal. Benzodiazepines cause sedative effects and are very addictive. You should not take these types of medications without being under supervision of a doctor. A medical detoxification is often required if addicted. Cannabis is mind altering and often times can cause and/or exacerbate mental health symptoms. DEPRESSION: Your evaluation reveals that you have mental depression. While symptoms may be vague, they often include disturbance of sleep, fatigue, loss of appetite, and general loss of interest in life. While depression may be a side effect of drugs, or a reaction to a major change in your life, many cases have no known cause. If depression is acute, and related to a major loss in your life, you can e xpect it to clear completely with time. If you have been depressed a long time, are prone to repeated bouts of depression or low mood, or have been thinking of suicide, get help. Depression can be treated with anti-depressant medication and counselling. Long-term depression will often take a few weeks to clear, even with appropriate medication. Follow-up care is important. SUICIDAL IDEATION: Suicidal ideation is a common medical term for thoughts about suicide, which may be as detailed as a formulated plan, without the suicidal act itself. Although most people who undergo suicidal ideation do not commit suicide, some go on to make suicide attempts. The range of suicidal ideation varies greatly from fleeting to detailed planning, role playing, and unsuccessful attempts. While thoughts about suicide are common, most people do not carry out serious actions to commit suicide. Based upon your evaluation and discussion with you, we do not believe you are currently at risk to act upon your thoughts of suicide. You have agreed to return to the Emergency Department, at any time, if you feel inclined to act upon your suicidal thoughts. FOLLOW-UP CARE: You reported [facility] was involved with you trying to obtain voluntary detoxification. This was confirmed and an [facility] Mobile Receptionist will be meeting you here at the hospital at discharge to try for voluntary detoxification again. If you experience worsening or a significant change in your symptoms, notify the physician immediately or return to the Emergency Department at any time for re-evaluation. Prescriptions: Promethazine HCl [Phenergan 25 mg Supp.rect] 1 supp AL Q6H PRN #[id number] supp.rect PRN Reason: Referrals: [facility] [Outside] - Follow up as needed
[2020-01-06] MEDS ORDERED: PROMETHAZINE HCL INJ 25 MG/1 ML VIAL IV ONE (19:19)
--- NOTE | 2020-01-06 19:25 | RADIOLOGY REPORT (SQ) ---
EXAM DESCRIPTION: CHEST SINGLE VIEW IMAGES COMPLETED DATE/TIME: 01/06/2020 7:17 pm REASON FOR STUDY: septic COMPARISON: 12/01/2019 EXAM PARAMETERS: NUMBER OF VIEWS: One view. TECHNIQUE: Single frontal radiographic view of the chest acquired. RADIATION DOSE: NA LIMITATIONS: None. FINDINGS: LUNGS AND PLEURA: No opacities, masses or pneumothorax. No pleural effusion. MEDIASTINUM AND HILAR STRUCTURES: No masses. Contour normal. HEART AND VASCULAR STRUCTURES: Heart normal in size. Normal vasculature. BONES: No acute findings. HARDWARE: None in the chest. OTHER: No other significant finding. IMPRESSION: NO ACUTE RADIOGRAPHIC FINDING IN THE CHEST. TECHNICAL DOCUMENTATION: JOB ID: [id number] 2010 [employer]- All Rights Reserved Reading location - IP/workstation name: [email or web address]
[2020-01-06 20:04] LABS: ALBUMIN 5.2 g/dL (3.5-5.0); ALKALINE PHOSPHATASE 90 U/L (38-126); ANION GAP 14 (5-19); ASPARTATE AMINO TRANSFERASE 32 U/L (14-36); BILIRUBIN,DIRECT 0.1 mg/dL (0.0-0.4); BILIRUBIN,TOTAL 0.6 mg/dL (0.2-1.3); BLOOD UREA NITROGEN 11 mg/dL (7-20); CALCIUM 9.9 mg/dL (8.4-10.2); CARBON DIOXIDE 19 mmol/L (22-30); CHLORIDE 103 mmol/L (98-107); GLUCOSE 121 mg/dL (75-110); TOTAL PROTEIN 8.8 g/dL (6.3-8.2)
--- NOTE | 2020-01-06 20:25 | RADIOLOGY REPORT (SQ) ---
CLINICAL INDICATION: LUQ, LLQ abd pain, +vomiting, +chills. . TECHNIQUE: Noncontrast spiral axial CT imaging was obtained of the abdomen and pelvis with multiplanar reconstructions. This exam was performed according to our departmental dose-optimization program, which includes automated exposure control, adjustment of the mA and/or kV according to patient size and/or use of iterative reconstruction techniques. COMPARISON: None. CORRELATION: None. FINDINGS: Abdomen: The lung bases demonstrate mild atelectasis right lung base. The heart is of normal size. No evidence of pleural or pericardial fluid. The liver is of normal size contour and attenuation. The gallbladder is surgically absent. The pancreas is of grossly normal contour on this noncontrast examination. The spleen is unremarkable. The adrenals are unremarkable. The kidneys appear grossly normal without evidence of urolithiasis or hydronephrosis. There is no evidence of free air. No free fluid. No bulky adenopathy. Abdominal aorta is nonaneurysmal. Pelvis: The bowel is nonobstructed. The bowel is unopacified with oral contrast. Pelvic contents are unremarkable. The appendix is not convincingly seen. Visualized bones are unremarkable. IMPRESSION: Artifact from the patient's arm. No acute intra-abdominal process is identified. The cause of the patient's abdominal pain, fever, and chills is not identified on this examination..
[2020-01-06 20:52] LABS: APPEARANCE,URINE SLIGHTLY-CLOUDY; BILIRUBIN,URINE NEGATIVE (NEGATIVE); COLOR,URINE YELLOW; GLUCOSE, URINE NEGATIVE (NEGATIVE); KETONES,URINE 80 mg/dL (NEGATIVE); LEUKOCYTE ESTERASE,URINE NEGATIVE (NEGATIVE); NITRITE,URINE NEGATIVE (NEGATIVE); PROTEIN,URINE 100 mg/dL (NEGATIVE); URINE SPECIFIC GRAVITY 1.016; UROBILINOGEN,URINE NEGATIVE mg/dL (<2.0)
[2020-01-06 21:05] LABS: URINE AMPHETAMINES SCREEN NEGATIVE; URINE BARBITURATES SCREEN NEGATIVE; URINE BENZODIAZEPINES SCREEN UNCONFIRMED POSITIVE; URINE COCAINE SCREEN UNCONFIRMED POSITIVE; URINE MARIJUANA (THC) SCREEN UNCONFIRMED POSITIVE; URINE METHADONE SCREEN NEGATIVE; URINE PHENCYCLIDINE SCREEN NEGATIVE
[2020-01-06] MEDS ORDERED: CLONIDINE HCL 0.1 MG TABLET PO ONE (23:37)
[2020-01-06] MEDS ORDERED: LOPERAMIDE HCL 2 MG CAPSULE PO ONE (23:40)
[2020-01-06] MEDS ORDERED: METOCLOPRAMIDE HCL INJ/PF 10 MG/2 ML SDV IV ONE (23:40)
[2020-01-07 01:47] LABS: ACETAMINOPHEN < 10 ug/mL (10-30); SALICYLATE < 1.0 mg/dL (2.0-20.0)
[2020-01-07] MEDS ORDERED: ACETAMINOPHEN 325 MG TABLET PO ONE (02:14)
[2020-01-07] MEDS ORDERED: DIPHENHYDRAMINE HCL 25 MG CAPSULE PO ONE (03:00)
[2020-01-07] MEDS ORDERED: PROMETHAZINE HCL 25 MG SUPP.RECT PR ONE ×2 (03:00→10:38)
[2020-01-07 06:36] VITALS: BP 139/76
[2020-01-07] MEDS ORDERED: METOCLOPRAMIDE HCL ORAL SOLN 10 MG/10 ML UDCUP PO ONE ×2 (07:23→10:00)
[2020-01-07] MEDS ORDERED: MAG HYDROX/AL HYDROX/SIMETH SUSP 30 ML UDCUP PO ONE ×2 (07:23→09:45)
[2020-01-07] MEDS ORDERED: LIDOCAINE 2% VISCOUS SOLN 15 ML UDCUP PO ONE ×2 (07:23→09:45)
--- NOTE | 2020-01-07 07:41 | ER Document Report ---
Doctor's Note Notes: 01/07/20 07:39 Patient turned over to me with nausea vomiting diarrhea and withdrawal from multiple substances. Patient also has fever and leukocytosis which may be secondary to her withdrawal or may be related to a viral syndrome, concern for possible COVID-19. No signs of any complication of viral infection however and no signs of any bacterial infection. Patient has no urinary symptoms, benign abdomen, normal chest x-ray, no infection on UA, no signs of meningitis. Patient has improved with supportive care and is now medically cleared. Patient tolerating p.o. in ED. Patient told me that she wanted to kill herself by overdosing and so I placed patient on IVC which I gave to Satish mendenhall. Patient turned over to Arely by me pending psych eval.
--- NOTE | 2020-01-07 08:17 | EKG REPORT ---
SEVERITY:- BORDERLINE ECG - SINUS RHYTHM POOR QUALITY WITH BASELINE ARTEFACT; AFFECTS INTERPRETATION : Confirmed by: Catarino Muniz MD 07-Jan-2020 08:17:16
[2020-01-07] MEDS ORDERED: METOCLOPRAMIDE HCL INJ/PF 10 MG/2 ML SDV IV ONE (09:45)
--- NOTE | 2020-01-07 10:41 | ER Document Report ---
Doctor's Note Notes: 01/07/20 10:40 PHYSICAL EXAMINATION: GENERAL: Well-appearing and in no acute distress. HEAD: Atraumatic, normocephalic. EYES: sclera anicteric, conjunctiva are normal. ENT: nares patent. Moist mucous membranes. NECK: Normal range of motion, supple without lymphadenopathy LUNGS: CTAB and equal. No wheezes rales or rhonchi. HEART: Regular rate and rhythm without murmurs ABDOMEN: Soft, mild generalized tenderness, normal bowel sounds, no guarding EXTREMITIES: Normal range of motion, no pitting edema. No cyanosis. BACK: No midline tenderness, No CVA tenderness NEUROLOGICAL: Cranial nerves grossly intact. Normal speech. PSYCH: Normal mood, normal affect. SKIN: Warm, Dry, normal turgor Patient complaining of nausea and requesting suppository Phenergan at this time. Patient reports that she has pain due to withdrawal symptoms from multiple substances including cocaine, benzos and opiates. 01/07/20 13:27 Patient medically clear for discharge at this time. Behavioral health team has set up follow-up with [facility] to seek outpatient detox. Patient is requesting prescription of Phenergan at this time. Patient no longer meets IVC criteria and her IVC has been rescinded.
[2020-01-07 10:59] LABS: ABSOLUTE LYMPHOCYTES (AUTO) 2.5 10^3/uL (0.5-4.7); ABSOLUTE MONOCYTES (AUTO) 1.3 10^3/uL (0.1-1.4); ABSOLUTE NEUT (AUTO) 11.8 10^3/uL (1.7-8.2); BASOPHILS % (AUTO) 0.2 % (0-2); EOSINOPHILS % (AUTO) 0.1 % (0-6); HEMATOCRIT 43.8 % (36.0-47.0); HEMOGLOBIN 14.3 g/dL (12.0-15.5); LYMPHOCYTES % (AUTO) 15.9 % (13-45); MEAN CORPUSCULAR HEMOGLOBIN 29.9 pg (27.0-33.4); MEAN CORPUSCULAR HGB CONC 32.7 g/dL (32.0-36.0); MEAN CORPUSCULAR VOLUME 91 fl (80-97); MONOCYTES % (AUTO) 8.4 % (3-13); PLATELET COUNT 329 10^3/uL (150-450); RED CELL DISTRIBUTION WIDTH 15.6 % (11.5-14.0); SEGMENTED NEUTROPHILS % (AUTO) 75.4 % (42-78); TOTAL CELLS COUNTED % (AUTO) 100 %; WHITE BLOOD COUNT 15.6 10^3/uL (4.0-10.5)
[2020-01-07 11:19] LABS: ANION GAP 11 (5-19); BLOOD UREA NITROGEN 14 mg/dL (7-20); CALCIUM 9.4 mg/dL (8.4-10.2); CARBON DIOXIDE 23 mmol/L (22-30); CHLORIDE 103 mmol/L (98-107); GLUCOSE 121 mg/dL (75-110); POTASSIUM 4.1 mmol/L (3.6-5.0)
--- NOTE | 2020-01-07 15:58 | PSYCHOLOGICAL NOTE ---
Psych Note - Psych Note Date seen by psych provider: 01/07/20 Time seen by psych provider: 11:56 - Made referral to [facility] via email at [phone]. Evaluation with patient from [phone]. Collateral with [facility] from [phone]. Psych Note: Patient is a 29 year old female who presented to the Emergency Department late afternoon yesterday via EMS for multiple episodes of vomiting and diarrhea the past couple days. She then made suicidal comment she would kill herself to get rid of the pain. She was subsequently put on a 24 Hour Petition for Evaluation. Patient stated "I just want to get out of this pain" when asked about making suicidal statement. She admitted she said it out of frustration. Patient stated "I'm in a lot of pain, the doctor said she would put orders in for medication, but I haven't had anything yet. Patient acknowledged she "hasn't gone and has an appointment at [facility] on Thursday." She identified she "relapsed on heroin 3 days ago and I'm having bad withdrawals." She also admitted she "took Xanax the night before yesterday." She reported [facility] (Graciela and Cm) was helping her get into inpatient rehab the day before yesterday. She confirmed she had been to [facility] previously , said it was not helpful, they provided medications and linked her to [facility], and she can't go back there because she is too high risk due to seizures. Urine Drug Screen was positive for opiates, benzodiazepines, cocaine and cannabis. Patient was alert and oriented to self, person, place, time and situation. Mood was depressed with flat affect (likely due to coming off multiple substances). She denied current suicidal and homicidal ideation. Patient did not appear to be responding to internal stimuli as evidenced by fair eye contact and answering questions appropriately when addressed. Thought processes were linear and organized. Conversational speech was within normal limits for rate, tone and prosody. Intellectual abilities are estimated to be average. Insight, judgment and impulse control were fair as evidenced by wanting to pursue inpatient rehab. Chart review revealed patient has been seen in the Emergency Department 7 times now for detox/anxiety/withdrawal issues. She was last seen by [facility] 10/08/2019 after being at [facility] and being sent to Emergency Department for withdrawal seizures, was cleared medically and sent back to [facility] who was holding a bed for her. At that visit patient stated she was involved with [facility] and Zelalem with [facility] noted they were trying to help her get into the Suboxone Program but she had not completed the paperwork. Review of medications in [facility] via patient's pharmacy listed Lisset Resendez as prescribed of psychiatric medications and she is a provider at [facility]. Made a [facility] referral via email at [phone]. From [phone] spoke to Cm with [facility]. He confirmed they were helping patient to get inpatient detox. He stated she was adamant about going to [facility] but she reported she has not used in 5 days so he told her she really didn't meet detox criteria. he described patient as "very upbeat, when told he was not making a [facility] referral then she started acting sick all of a sudden, she just was not presenting the way she was reporting." He stated another issue was her wanting Suboxone and not being able to get that in Detox. MCM worker acknowledged there was no bed availability on anywhere but patient was supposed to call the [facility] for a check in. MCM worker said he would sen a rock worker to the hospital, patient said she was interested and Tita the rock worker to come to the Emergency Department to meet patient at discharge. Clinical Presentation: Polysubstance Use Opioid Use Benzodiazepine Use Cocaine Use Cannabis Use Reported in pain, was frustrated, so made suicidal statement Impression/Plan: Patient is cleared from acute psychiatric services. Recom mendation to [facility] 24 Hour Petition for Evaluation. Patient denied current suicidal ideation, admitted she was frustrated from pain, and stated she is interested in rehab/detox. [facility] was involved trying to obtain voluntary detox. They agreed to meet patient at discharge. Did a warm hand off to Tita with [facility] and provided her with patient's lab work (patient gave verbal consent to do so). Made referral to [facility]. Consulted with Dr. Rodriges regarding the management and care of patient. ED Physician in agreement with recommendations.
== END 2020-01-07 14:00 | disposition home or self-care (01) ==
LOC: ER 14:26
DX: R45.851 Suicidal ideations (principal); F19.939 Other psychoactive substance use, unspecified with withdrawal, unspecified; R19.7 Diarrhea, unspecified; R11.2 Nausea with vomiting, unspecified; R10.9 Unspecified abdominal pain; R10.12 Left upper quadrant pain; R10.32 Left lower quadrant pain; R50.9 Fever, unspecified; Z88.0 Allergy status to penicillin; Z88.1 Allergy status to other antibiotic agents; Z20.828 Contact with and (suspected) exposure to other viral communicable diseases
CPT/HCPCS: 93005; 99285; 96361; 96374; 96375; 36415; 87040; 83605; 83690; 80307 ×3; 85025; 87635; 81025; 87077; 80048; 80053; 81001; 87186; 87150 ×26; 71045; 74177; 93010; J3490 ×8; J1200; J1630; J1885; J2765; J2550; J2405; J7030; C9803